=== PATIENT | female | born 1960 ===

== ENCOUNTER 2025-02-01 10:15 | Inpatient (IN) | payer OTHER ==
[~2025-02-01] VITALS: Ht 121.9 cm; Wt 43.1 kg
[2025-02-01] MEDS ORDERED: ZOLOFT25 MG PO (15:00)
[2025-02-01] MEDS ORDERED: FOSAMAX70 MG PO (15:00)
[2025-02-01] MEDS ORDERED: ALPRAZOLAM OD0.25 MG PO (15:00)
[2025-02-01] MEDS ORDERED: ABATINEX680 MG PO (15:01)
[2025-02-07] MEDS ORDERED: CEFTRIAXONE SODIUM 2,000 MG VIAL IV ONE (09:30)
[2025-02-07] MEDS ORDERED: METRONIDAZOLE/SODIUM CHLORIDE 500 MG/100 ML PIGGYBACK IV ONE (09:30)
[2025-02-07] MEDS ORDERED: BUPIVACAINE HCL 30 ML VIAL IJ ONE (09:30)
[2025-02-07] MEDS ORDERED: LIDOCAINE HCL 1%/EPINEPHRINE 20ML VIAL IJ ONE (09:30)
[2025-02-07] MEDS ORDERED: MORPHINE SULFATE 4 MG/ML VIAL IV ONE ×2 (13:35→15:15)
[2025-02-07] MEDS ORDERED: MORPHINE SULFATE 4 MG/ML CARTRIDGE IV PRN (14:45)
[2025-02-07] MEDS ORDERED: ONDANSETRON HCL 2 MG/ML VIAL IV PRN (14:45)
[2025-02-07] MEDS ORDERED: RINGERS SOLUTION,LACTATED 1,000 ML IV SCH (14:45)
[2025-02-07 15:43] LABS: BASO % 0.1 % (0.1-1.2); EOS # 0.00 (0.04-0.54); EOS % 0.0 % (0.7-7.0); LYMPH # 0.71 (1.18-3.74); LYMPH % 7.4 % (19.3-53.1); MEAN PLATELET VOLUME 11.50 fl (9.4-12.4); MONO # 0.38 (0.24-0.82); MONO % 4.0 % (4.7-12.5); NEUT # 8.42 (1.56-6.13); NEUT % 88.3 % (34.0-71.1); RED CELL DISTRIBUTION WIDTH 12.6 % (11.6-14.4)
[2025-02-07] MEDS ORDERED: METOCLOPRAMIDE HCL 5 MG/ML VIAL IV SCH (17:00)
[2025-02-07] MEDS ORDERED: CELECOXIB 200 MG CAPSULE PO SCH (17:00)
[2025-02-07] MEDS ORDERED: GABAPENTIN 300 MG CAPSULE PO SCH (17:00)
[2025-02-07] MEDS ORDERED: HYOSCYAMINE SULFATE 0.125 MG TAB.SUBL SL SCH (17:00)
[2025-02-07 17:30] VITALS: BP 142/88; O2SAT 99
[2025-02-07] MEDS ORDERED: ENALAPRILAT DIHYDRATE 1.25 MG/ML VIAL IV PRN (17:30)
[2025-02-07] MEDS ORDERED: ACETAMINOPHEN 500 MG GEL..CAP PO SCH (20:00)
[2025-02-07] MEDS ORDERED: SIMETHICONE 125 MG CAPSULE PO SCH (21:00)
[2025-02-07] MEDS ORDERED: FAMOTIDINE/PF 20 MG/2 ML VIAL IV PUSH SCH (21:00)
[2025-02-08 06:57] LABS: BASO % 0.1 % (0.1-1.2); EOS # 0.00 (0.04-0.54); EOS % 0.0 % (0.7-7.0); LYMPH # 0.88 (1.18-3.74); LYMPH % 7.7 % (19.3-53.1); MEAN PLATELET VOLUME 11.80 fl (9.4-12.4); MONO # 0.62 (0.24-0.82); MONO % 5.5 % (4.7-12.5); NEUT # 9.83 (1.56-6.13); NEUT % 86.4 % (34.0-71.1); RED CELL DISTRIBUTION WIDTH 12.6 % (11.6-14.4)
[2025-02-08 07:10] LABS: BUN CREA RATIO 12.0 (7.0-25.0); CREATININE SERUM 0.77 mg/dL (0.55-1.02); GFR 75.23; GLUCOSE FASTING 112.0 mg/dL (65-100); OSMOLALITY SERUM 283.0 MOSM/KG (275-295)
[2025-02-08] MEDS ORDERED: LACTULOSE 20 G/30 ML BLIST.PACK PO SCH (09:00)
[2025-02-08] MEDS ORDERED: LACTOBACILLUS ACIDOPHILUS 1 CAP CAP PO SCH (09:00)
[2025-02-08] MEDS ORDERED: MAGNESIUM SULFATE IN WATER 50 ML IV NR (10:00)
[2025-02-08 11:19] VITALS: BP 114/75; O2SAT 98
[2025-02-08] MEDS ORDERED: ENOXAPARIN SODIUM 40 MG/0.4 ML SYRINGE SUBCUTANEO SCH (17:00)
[2025-02-08 17:08] VITALS: BP 111/73; O2SAT 100
[2025-02-09 02:27] VITALS: BP 95/63; O2SAT 97
[2025-02-09 06:15] LABS: BASO % 0.4 % (0.1-1.2); EOS # 0.03 (0.04-0.54); EOS % 0.4 % (0.7-7.0); LYMPH # 1.57 (1.18-3.74); LYMPH % 19.0 % (19.3-53.1); MEAN PLATELET VOLUME 12.00 fl (9.4-12.4); MONO # 0.65 (0.24-0.82); MONO % 7.9 % (4.7-12.5); NEUT # 5.97 (1.56-6.13); NEUT % 72.1 % (34.0-71.1); RED CELL DISTRIBUTION WIDTH 12.9 % (11.6-14.4)
[2025-02-09 07:16] LABS: BUN CREA RATIO 15.0 (7.0-25.0); CREATININE SERUM 0.67 mg/dL (0.55-1.02); GFR 88.33; GLUCOSE FASTING 80.0 mg/dL (65-100); OSMOLALITY SERUM 283.0 MOSM/KG (275-295)
[2025-02-09 07:35] VITALS: BP 113/73; O2SAT 98
[2025-02-09] MEDS ORDERED: ENOXAPARIN SODIUM 40 MG/0.4 ML SYRINGE SUBCUTANEO SCH (09:00)
[2025-02-09 11:27] LABS: BASO % 0.2 % (0.1-1.2); EOS # 0.03 (0.04-0.54); EOS % 0.3 % (0.7-7.0); LYMPH # 1.08 (1.18-3.74); LYMPH % 12.4 % (19.3-53.1); MEAN PLATELET VOLUME 12.30 fl (9.4-12.4); MONO # 0.42 (0.24-0.82); MONO % 4.8 % (4.7-12.5); NEUT # 7.14 (1.56-6.13); NEUT % 81.7 % (34.0-71.1); RED CELL DISTRIBUTION WIDTH 12.9 % (11.6-14.4)
[2025-02-09] MEDS ORDERED: Cyanocobalamin/Mecobalamin 1 TAB.SL SL SCH (12:12)
[2025-02-09] MEDS ORDERED: SOD FERRIC GLUC COMPLX/SUCROSE 62.5 MG in 0.9 % SODIUM CHLORIDE 50 ML IV SCH (12:12)
[2025-02-09] MEDS ORDERED: POTASSIUM PHOS,M-BASIC-D-BASIC 3 MM/ML VIAL IV NR (13:30)
[2025-02-09] MEDS ORDERED: AMINOCAPROIC ACID 250 MG/ML VIAL IV STA (15:20)
[2025-02-09] MEDS ORDERED: AMINOCAPROIC ACID 20 MG/ML ML IV SCH (17:00)
[2025-02-09 21:05] VITALS: BP 161/81; O2SAT 98
[2025-02-09 21:15] VITALS: BP 99/64; O2SAT 95
[2025-02-10 01:36] VITALS: BP 105/61; O2SAT 98
[2025-02-10 07:02] LABS: BASO % 0.3 % (0.1-1.2); EOS # 0.15 (0.04-0.54); EOS % 2.4 % (0.7-7.0); LYMPH # 1.30 (1.18-3.74); LYMPH % 20.5 % (19.3-53.1); MEAN PLATELET VOLUME 12.10 fl (9.4-12.4); MONO # 0.49 (0.24-0.82); MONO % 7.7 % (4.7-12.5); NEUT # 4.37 (1.56-6.13); NEUT % 68.8 % (34.0-71.1); RED CELL DISTRIBUTION WIDTH 12.9 % (11.6-14.4)
[2025-02-10 08:00] VITALS: BP 138/81; O2SAT 99
[2025-02-10 16:00] VITALS: BP 156/89; O2SAT 97
[2025-02-11 01:13] VITALS: BP 130/76; O2SAT 97
[2025-02-11 08:20] VITALS: BP 145/88; O2SAT 98
[2025-02-11 13:49] LABS: BASO % 0.4 % (0.1-1.2); EOS # 0.06 (0.04-0.54); EOS % 0.7 % (0.7-7.0); LYMPH # 0.94 (1.18-3.74); LYMPH % 11.2 % (19.3-53.1); MEAN PLATELET VOLUME 11.50 fl (9.4-12.4); MONO # 0.49 (0.24-0.82); MONO % 5.8 % (4.7-12.5); NEUT # 6.77 (1.56-6.13); NEUT % 80.8 % (34.0-71.1); RED CELL DISTRIBUTION WIDTH 12.9 % (11.6-14.4)
[2025-02-11 14:15] LABS: BUN CREA RATIO 11.0 (7.0-25.0); CREATININE SERUM 0.75 mg/dL (0.55-1.02); GFR 77.55; GLUCOSE FASTING 95.0 mg/dL (65-100); OSMOLALITY SERUM 278.0 MOSM/KG (275-295)
[2025-02-11 16:00] VITALS: BP 139/80; O2SAT 98
[2025-02-11] MEDS ORDERED: PANTOPRAZOLE SODIUM 40 MG/VIAL VIAL IV NR (16:00)
[2025-02-11] MEDS ORDERED: SUCRALFATE 1 G TABLET PO SCH (17:00)
[2025-02-12] VITALS: BP 151/79; O2SAT 96
[2025-02-12 08:00] VITALS: BP 154/89; O2SAT 97
[2025-02-12] MEDS ORDERED: PANTOPRAZOLE SODIUM 40 MG/VIAL VIAL IV SCH (09:00)
[2025-02-12] MEDS ORDERED: DIATRIZOATE MEGLUMINE, SODIUM 30 ML BOTTLE PO NR (14:15)
[2025-02-12 16:00] VITALS: BP 176/82; O2SAT 95
[2025-02-13 01:43] VITALS: BP 150/76; O2SAT 96
[2025-02-13 09:00] VITALS: BP 159/80; O2SAT 98
[2025-02-13 16:00] VITALS: BP 177/94; O2SAT 96
[2025-02-13] MEDS ORDERED: FAMOTIDINE/PF 20 MG/2 ML VIAL IV SCH (21:00)
[2025-02-14 02:39] VITALS: BP 129/77; O2SAT 96
[2025-02-14 08:20] VITALS: BP 150/89; O2SAT 97
[2025-02-14] MEDS ORDERED: LORazepam 2 MG/ML VIAL IV PRN ×2 (09:00→10:24)
[2025-02-14] MEDS ORDERED: AA 4.25%/CAL/LYTES/DEXT 5% 1,000 ML PERIFERAL SCH ×2 (10:30→17:00)
[2025-02-14] MEDS ORDERED: AMINO ACIDS 4.25 %/DEXTROSE 5% 1,000 ML PERIFERAL SCH (17:00)
[2025-02-14] MEDS ORDERED: AA 2.36%/D6.8W/FAT/E-LYTES NO9 1,440 ML IV SCH (17:00)
[2025-02-14 17:14] VITALS: BP 168/90; O2SAT 99
[2025-02-14 23:00] VITALS: BP 133/90; O2SAT 97
[2025-02-15] MEDS ORDERED: PHENOL 177 ML BOTTLE MM SCH (01:00)
[2025-02-15 07:20] LABS: BASO % 0.4 % (0.1-1.2); EOS # 0.11 (0.04-0.54); EOS % 1.1 % (0.7-7.0); LYMPH # 0.96 (1.18-3.74); LYMPH % 9.9 % (19.3-53.1); MEAN PLATELET VOLUME 10.40 fl (9.4-12.4); MONO # 1.08 (0.24-0.82); MONO % 11.1 % (4.7-12.5); NEUT # 7.38 (1.56-6.13); NEUT % 76.3 % (34.0-71.1); RED CELL DISTRIBUTION WIDTH 12.4 % (11.6-14.4)
[2025-02-15 07:27] LABS: BUN CREA RATIO 21.0 (7.0-25.0); CREATININE SERUM 0.61 mg/dL (0.55-1.02); GFR 98.43; GLUCOSE FASTING 104.0 mg/dL (65-100); OSMOLALITY SERUM 274.0 MOSM/KG (275-295)
[2025-02-15 09:30] VITALS: BP 130/86; O2SAT 98
[2025-02-15] MEDS ORDERED: SODIUM CHLORIDE 0.45 % 1,000 ML IV SCH (09:45)
[2025-02-15] MEDS ORDERED: POTASSIUM CHLORIDE 20MEQ/100ML H2O PB IV NR (09:45)
[2025-02-15 18:17] VITALS: BP 122/82; O2SAT 97
[2025-02-16 01:50] VITALS: BP 113/84; O2SAT 97
[2025-02-16] MEDS ORDERED: DIATRIZOATE MEGLUMINE, SODIUM 30 ML BOTTLE PO NR (02:00)
[2025-02-16 13:04] LABS: BASO % 0.4 % (0.1-1.2); EOS # 0.07 (0.04-0.54); EOS % 0.7 % (0.7-7.0); LYMPH # 1.11 (1.18-3.74); LYMPH % 11.3 % (19.3-53.1); MEAN PLATELET VOLUME 10.70 fl (9.4-12.4); MONO # 0.88 (0.24-0.82); MONO % 9.0 % (4.7-12.5); NEUT # 7.60 (1.56-6.13); NEUT % 77.4 % (34.0-71.1); RED CELL DISTRIBUTION WIDTH 12.6 % (11.6-14.4)
[2025-02-16 13:25] LABS: BUN CREA RATIO 23.0 (7.0-25.0); CREATININE SERUM 0.65 mg/dL (0.55-1.02); GFR 91.48; GLUCOSE FASTING 91.0 mg/dL (65-100); OSMOLALITY SERUM 274.0 MOSM/KG (275-295)
[2025-02-16 13:38] LABS: INR 1.09
[2025-02-16 16:55] VITALS: BP 125/68; O2SAT 100
[2025-02-17 08:00] VITALS: BP 121/83; O2SAT 95
[2025-02-17 16:09] VITALS: BP 123/88; O2SAT 98
[2025-02-18 01:00] VITALS: BP 101/65; BP 115/72; O2SAT 95
[2025-02-18 08:39] VITALS: BP 117/78; O2SAT 96
[2025-02-18] MEDS ORDERED: MEPERIDINE HCL/PF 25 MG/ML VIAL IV PRN (10:30)
[2025-02-18] MEDS ORDERED: MORPHINE SULFATE 4 MG in 0.9 % SODIUM CHLORIDE 9 ML IV PRN (10:30)
[2025-02-18] MEDS ORDERED: ONDANSETRON HCL 2 MG/ML VIAL IV NR (10:30)
[2025-02-18] MEDS ORDERED: SUGAMMADEX SODIUM 200 MG/2 ML VIAL IV ONE (13:30)
[2025-02-18] MEDS ORDERED: ONDANSETRON HCL 2 MG/ML VIAL IV PRN (13:45)
[2025-02-18] MEDS ORDERED: DEXTROSE 50 % IN WATER 0.5 G/ML VIAL IV PRN (13:45)
[2025-02-18] MEDS ORDERED: MORPHINE SULFATE 4 MG/ML CARTRIDGE IV PRN (13:45)
[2025-02-18] MEDS ORDERED: MORPHINE SULFATE 4 MG/ML VIAL IV ONE (14:00)
[2025-02-18] MEDS ORDERED: ACETAMINOPHEN 500 MG GEL..CAP PO SCH (14:00)
[2025-02-18 14:59] VITALS: BP 147/74; O2SAT 96
[2025-02-18 17:52] VITALS: BP 143/84; O2SAT 96
[2025-02-19] VITALS: BP 117/78; O2SAT 96
[2025-02-19 07:56] LABS: BASO % 0.3 % (0.1-1.2); EOS # 0.12 (0.04-0.54); EOS % 0.9 % (0.7-7.0); LYMPH # 1.26 (1.18-3.74); LYMPH % 9.8 % (19.3-53.1); MEAN PLATELET VOLUME 11.40 fl (9.4-12.4); MONO # 0.85 (0.24-0.82); MONO % 6.6 % (4.7-12.5); NEUT # 10.45 (1.56-6.13); NEUT % 81.8 % (34.0-71.1); RED CELL DISTRIBUTION WIDTH 12.5 % (11.6-14.4)
[2025-02-19 08:00] VITALS: BP 118/75; O2SAT 96
[2025-02-19 08:10] LABS: BUN CREA RATIO 20.0 (7.0-25.0); CREATININE SERUM 0.59 mg/dL (0.55-1.02); GFR 102.29; GLUCOSE FASTING 106.0 mg/dL (65-100); OSMOLALITY SERUM 276.0 MOSM/KG (275-295)
[2025-02-19 08:19] VITALS: BP 118/75; O2SAT 96
[2025-02-19] MEDS ORDERED: PANTOPRAZOLE SODIUM 40 MG/VIAL VIAL IV SCH (09:00)
[2025-02-19 17:08] VITALS: BP 136/85; O2SAT 95
[2025-02-20 00:53] VITALS: BP 119/78; O2SAT 96
[2025-02-20 07:20] LABS: ALT/SGPT 17.0 U/L (12-78); AST/SGOT 15.0 U/L (15-37); BILIRUBIN TOTAL 1.08 mg/dL (0.3-1.2); BILIRUBIN,CONJUGATED 0.51 mg/dL (0.0-0.2); BUN CREA RATIO 25.0 (7.0-25.0); CHOL HDL RATIO 2.1 (0-5.0); CREATININE SERUM 0.44 mg/dL (0.55-1.02); GFR 143.51; GLOBULINA 2.9 G/DL (2.4-3.5); GLUCOSE FASTING 111.0 mg/dL (65-100); HDL 55.0 mg/dl (40-60); LDL 39.0 mg/dl (0-130); OSMOLALITY SERUM 276.0 MOSM/KG (275-295); VLDL 20.0 (0-39)
[2025-02-20 07:21] LABS: INR 1.15
[2025-02-20 07:44] LABS: BASO % 0.4 % (0.1-1.2); EOS # 0.18 (0.04-0.54); EOS % 1.7 % (0.7-7.0); LYMPH # 1.16 (1.18-3.74); LYMPH % 10.8 % (19.3-53.1); MEAN PLATELET VOLUME 11.60 fl (9.4-12.4); MONO # 0.98 (0.24-0.82); MONO % 9.1 % (4.7-12.5); NEUT # 8.36 (1.56-6.13); NEUT % 77.4 % (34.0-71.1); RED CELL DISTRIBUTION WIDTH 12.4 % (11.6-14.4)
[2025-02-20 08:00] VITALS: BP 119/77; O2SAT 97
[2025-02-20] MEDS ORDERED: POTASSIUM PHOS,M-BASIC-D-BASIC 3 MM/ML VIAL IV NR (11:30)
[2025-02-20] MEDS ORDERED: POTASSIUM CHLORIDE 20MEQ/100ML H2O PB IV NR (12:00)
[2025-02-20 18:01] VITALS: BP 118/75; O2SAT 96
[2025-02-21 08:00] VITALS: BP 120/82; O2SAT 97
[2025-02-21] MEDS ORDERED: ENOXAPARIN SODIUM 40 MG/0.4 ML SYRINGE SUBCUTANEO SCH (09:00)
[2025-02-22 01:11] VITALS: BP 112/74; O2SAT 97
[2025-02-22 07:13] LABS: BASO % 1.1 % (0.1-1.2); EOS # 0.26 (0.04-0.54); EOS % 4.7 % (0.7-7.0); LYMPH # 1.36 (1.18-3.74); LYMPH % 24.7 % (19.3-53.1); MEAN PLATELET VOLUME 11.40 fl (9.4-12.4); MONO # 0.88 (0.24-0.82); NEUT # 2.89 (1.56-6.13); NEUT % 52.6 % (34.0-71.1); RED CELL DISTRIBUTION WIDTH 12.3 % (11.6-14.4)
[2025-02-22 07:39] LABS: MONO % 16.0 % (4.7-12.5)
[2025-02-22 07:44] LABS: BUN CREA RATIO 26.0 (7.0-25.0); CREATININE SERUM 0.53 mg/dL (0.55-1.02); GFR 115.77; GLUCOSE FASTING 78.0 mg/dL (65-100); OSMOLALITY SERUM 281.0 MOSM/KG (275-295)
[2025-02-22 17:00] VITALS: BP 133/68; O2SAT 98
[2025-02-23 03:45] VITALS: BP 142/80; O2SAT 98
[2025-02-23 08:00] VITALS: BP 125/81; O2SAT 98
== END 2025-02-23 13:33 | disposition home or self-care (01) | DRG 330 ==
LOC: O/R 02-07 05:00 → SURG 02-07 05:00 → SURH 02-07 07:00 → SURG 02-07 14:57
PROVIDERS: Internal Medicine Geriatric Medicine; Surgery; ADMIT Colon & Rectal Surgery; ATTEND Colon & Rectal Surgery
PROC: 0DBP4ZZ Excision of Rectum, Percutaneous Endoscopic Approach (ICD-10-PCS; 2025-02-07)
PROC: 0DXU4ZW Transfer Omentum to Abdominal Region, Percutaneous Endoscopic Approach (ICD-10-PCS; 2025-02-07)
PROC: 0DJD8ZZ Inspection of Lower Intestinal Tract, Via Natural or Artificial Opening Endoscopic (ICD-10-PCS; 2025-02-07)
PROC: 8E0W4CZ Robotic Assisted Procedure of Trunk Region, Percutaneous Endoscopic Approach (ICD-10-PCS; 2025-02-07)
PROC: 0DTN4ZZ Resection of Sigmoid Colon, Percutaneous Endoscopic Approach (ICD-10-PCS; principal; 2025-02-07 07:00)
PROC: 30233N1 Transfusion of Nonautologous Red Blood Cells into Peripheral Vein, Percutaneous Approach (ICD-10-PCS; 2025-02-10)
PROC: BW21ZZZ Computerized Tomography (CT Scan) of Abdomen and Pelvis (ICD-10-PCS; 2025-02-12)
PROC: 3E0336Z Introduction of Nutritional Substance into Peripheral Vein, Percutaneous Approach (ICD-10-PCS; 2025-02-14)
PROC: 05HB33Z Insertion of Infusion Device into Right Basilic Vein, Percutaneous Approach (ICD-10-PCS; 2025-02-14)
PROC: BW21ZZZ Computerized Tomography (CT Scan) of Abdomen and Pelvis (ICD-10-PCS; 2025-02-16)
PROC: 0DNW4ZZ Release Peritoneum, Percutaneous Endoscopic Approach (ICD-10-PCS; 2025-02-18)
PROC: 0WQF4ZZ Repair Abdominal Wall, Percutaneous Endoscopic Approach (ICD-10-PCS; 2025-02-18)
DX: K57.20 Diverticulitis of large intestine with perforation and abscess without bleeding (principal); D62 Acute posthemorrhagic anemia; K91.30 Postprocedural intestinal obstruction, unspecified as to partial versus complete; N32.1 Vesicointestinal fistula; K43.2 Incisional hernia without obstruction or gangrene; F41.9 Anxiety disorder, unspecified; F41.0 Panic disorder [episodic paroxysmal anxiety]
CPT/HCPCS: 44207; 49905; 44213; 45300; 36430; 74176 ×2; 36573; 44180; 49591; S2900

== ENCOUNTER 2025-02-28 02:10 | Inpatient (IN) | payer OTHER ==
[~2025-02-28] VITALS: Ht 144.8 cm; Wt 44.9 kg
[~2025-02-28 02:10] MED LIST: ABATINEX680 MG PO; ALPRAZOLAM OD0.25 MG PO; FOSAMAX70 MG PO; ZOLOFT25 MG PO
[2025-02-28] MEDS ORDERED: RINGERS SOLUTION,LACTATED 1,000 ML IV STA (02:39)
[2025-02-28] MEDS ORDERED: ONDANSETRON HCL 2 MG/ML VIAL IV STA (02:39)
[2025-02-28] MEDS ORDERED: ONDANSETRON HCL 2 MG/ML VIAL ONE (02:40)
[2025-02-28] MEDS ORDERED: MORPHINE SULFATE 4 MG/ML VIAL IV STA (02:40)
[2025-02-28] MEDS ORDERED: HYOSCYAMINE SULFATE 0.125 MG TAB.SUBL ONE (02:41)
[2025-02-28] MEDS ORDERED: HYOSCYAMINE SULFATE 0.125 MG TAB.SUBL SL ONE (02:45)
[2025-02-28 03:10] LABS: BASO % 0.4 % (0.1-1.2); EOS # 0.21 (0.04-0.54); EOS % 3.1 % (0.7-7.0); LYMPH # 0.79 (1.18-3.74); LYMPH % 11.8 % (19.3-53.1); MEAN PLATELET VOLUME 11.40 fl (9.4-12.4); MONO # 0.90 (0.24-0.82); NEUT # 4.76 (1.56-6.13); NEUT % 70.9 % (34.0-71.1); RED CELL DISTRIBUTION WIDTH 12.6 % (11.6-14.4)
[2025-02-28 03:19] LABS: INR 1.11; MONO % 13.4 % (4.7-12.5)
[2025-02-28 04:01] LABS: ALT/SGPT 20.0 U/L (12-78); AST/SGOT 25.0 U/L (15-37); BILIRUBIN TOTAL 0.74 mg/dL (0.3-1.2); BILIRUBIN,CONJUGATED 0.26 mg/dL (0.0-0.2); BUN CREA RATIO 27.0 (7.0-25.0); CREATININE SERUM 0.73 mg/dL (0.55-1.02); GFR 80.01; GLOBULINA 3.3 G/DL (2.4-3.5); GLUCOSE FASTING 129.0 mg/dL (65-100); OSMOLALITY SERUM 284.0 MOSM/KG (275-295)
[2025-02-28] MEDS ORDERED: LIDOCAINE HCL VISCOUS 20MG/ML BLIST 15ML MM ONE (04:36)
[2025-02-28] MEDS ORDERED: FAMOTIDINE/PF 20 MG in 0.9 % SODIUM CHLORIDE 8 ML IV PUSH SCH (16:50)
[2025-02-28] MEDS ORDERED: FAMOTIDINE/PF 20 MG/2 ML VIAL ONE (16:54)
[2025-02-28] MEDS ORDERED: PIPERACILLIN/TAZOBACTAM SODIUM 3.375 GM VIAL IV ONE (16:54)
[2025-02-28] MEDS ORDERED: ONDANSETRON HCL 4 MG in 0.9 % SODIUM CHLORIDE 50 ML IV PRN (17:00)
[2025-02-28] MEDS ORDERED: 0.9 % SODIUM CHLORIDE 1,000 ML IV SCH (17:00)
[2025-02-28] MEDS ORDERED: MORPHINE SULFATE 4 MG/ML CARTRIDGE IV PRN (17:00)
[2025-02-28] MEDS ORDERED: RINGERS SOLUTION,LACTATED 1,000 ML IV SCH (17:15)
[2025-02-28 17:54] LABS: URINE APPEARANCE Cloudy; URINE BILIRRUBIN Negative (NEGATIVE); URINE BLOOD Trace; URINE COLOR Yellow; URINE GLUCOSE Negative (NEGATIVE); URINE LEUKOCYTE Negative; URINE NITRATE Negative; URINE PROTEIN 30 (NEGATIVE); URINE UROBILINOGEN 0.2 E.U./dl
[2025-02-28 17:57] LABS: URINE BACTERIA 477.5 uL (0.0-1933); URINE CAST 1.46 uL (0.0-1.40); URINE EPITHELIAL CELLS 80.9 uL (0.0-38.8); URINE RBC 7.0 uL (0.0-20.8); URINE WBC 8.3 uL (0.0-23.2)
[2025-02-28] MEDS ORDERED: PIPERACILLIN/TAZOBACTAM SODIUM 3.375 GM in DEXTROSE 5 % IN WATER 100 ML IV SCH (18:00)
[2025-02-28 18:16] LABS: URINE CRYSTALS FEW /HPF; URINE KETONE 80 (NEGATIVE)
[2025-02-28 18:17] LABS: TYPE CELLS RENAL TUBULAR
[2025-02-28] MEDS ORDERED: MORPHINE SULFATE 2 MG/ML CARTRIDGE IV PRN (19:30)
[2025-02-28] MEDS ORDERED: FAMOTIDINE/PF 20 MG/2 ML VIAL IV SCH (21:00)
[2025-03-01 00:20] VITALS: BP 114/72; O2SAT 95
[2025-03-01] MEDS ORDERED: METOCLOPRAMIDE HCL 5 MG/ML VIAL IV SCH (01:00)
[2025-03-01 06:54] LABS: BASO % 0.7 % (0.1-1.2); EOS # 0.19 (0.04-0.54); EOS % 3.3 % (0.7-7.0); LYMPH # 0.92 (1.18-3.74); LYMPH % 16.2 % (19.3-53.1); MEAN PLATELET VOLUME 12.40 fl (9.4-12.4); MONO # 0.69 (0.24-0.82); NEUT # 3.82 (1.56-6.13); NEUT % 67.2 % (34.0-71.1); RED CELL DISTRIBUTION WIDTH 12.7 % (11.6-14.4)
[2025-03-01 07:08] LABS: MONO % 12.1 % (4.7-12.5)
[2025-03-01 07:42] LABS: BUN CREA RATIO 30.0 (7.0-25.0); CREATININE SERUM 0.64 mg/dL (0.55-1.02); GFR 93.13; GLUCOSE FASTING 88.0 mg/dL (65-100); OSMOLALITY SERUM 285.0 MOSM/KG (275-295)
[2025-03-01 08:29] VITALS: BP 105/65; O2SAT 98
[2025-03-01] MEDS ORDERED: ENOXAPARIN SODIUM 40 MG/0.4 ML SYRINGE SUBCUTANEO SCH (09:00)
[2025-03-01 16:00] VITALS: BP 122/75; O2SAT 97
[2025-03-02 01:02] VITALS: BP 111/74; O2SAT 98
[2025-03-02 08:00] VITALS: BP 124/75; O2SAT 98
[2025-03-02 16:23] VITALS: BP 97/62; O2SAT 98
[2025-03-03 02:24] VITALS: BP 132/67; O2SAT 98
[2025-03-03] MEDS ORDERED: MORPHINE SULFATE 2 MG/ML CARTRIDGE IV PRN (06:30)
[2025-03-03 08:01] VITALS: BP 163/91; O2SAT 100
[2025-03-03] MEDS ORDERED: SODIUM CHLORIDE 0.45 % 1,000 ML IV SCH (08:45)
[2025-03-03] MEDS ORDERED: VANCOMYCIN HCL 125 MG CAPSULE PO STA (10:04)
[2025-03-03 11:10] VITALS: BP 136/81
[2025-03-03] MEDS ORDERED: VANCOMYCIN HCL 125 MG CAPSULE PO SCH (14:00)
[2025-03-03 17:56] VITALS: BP 138/84; O2SAT 95
[2025-03-04 01:22] VITALS: BP 131/80; O2SAT 97
[2025-03-04 08:07] VITALS: BP 138/84; O2SAT 99
[2025-03-04] MEDS ORDERED: LACTOBACILLUS ACIDOPHILUS 1 CAP CAP PO SCH (09:00)
[2025-03-04 16:00] VITALS: BP 134/85; O2SAT 97
[2025-03-05 00:06] VITALS: BP 108/70; O2SAT 97
[2025-03-05 08:24] VITALS: BP 101/72; O2SAT 98
[2025-03-05] MEDS ORDERED: VANCOMYCIN HCL125 MG PO (10:43)
[2025-03-05 23:06] LABS: GIARDIA LAMBLIA EIA Negative (Negative)
[2025-03-07 05:06] LABS: campy Final report (.)
== END 2025-03-05 11:57 | disposition home or self-care (01) | DRG 389 ==
LOC: ER 02:10 → SURG 17:09 → SEC-K 17:09 → SURG 17:53 → SURH 03-03 10:13
PROVIDERS: General Practice; Internal Medicine Infectious Disease; ADMIT Colon & Rectal Surgery; ATTEND Colon & Rectal Surgery
PROC: BW21ZZZ Computerized Tomography (CT Scan) of Abdomen and Pelvis (ICD-10-PCS; principal; 2025-02-28)
PROC: 0DH68UZ Insertion of Feeding Device into Stomach, Via Natural or Artificial Opening Endoscopic (ICD-10-PCS; 2025-02-28)
PROC: 8E0ZXY6 Isolation (ICD-10-PCS; 2025-03-03)
DX: K56.699 Other intestinal obstruction unspecified as to partial versus complete obstruction (principal); K57.32 Diverticulitis of large intestine without perforation or abscess without bleeding; N32.1 Vesicointestinal fistula; F41.9 Anxiety disorder, unspecified